=== PATIENT | female | born 1965 | race Caucasian/White ===

== ENCOUNTER 2016-12-09 21:40 | Inpatient (IN) | payer BC ==
--- NOTE | ~2016-12-09 | OP ---
Record Of Operation [facility] [address] [place]. [address] NAME: IRENA CHENEY : 61 STATUS : DIS IN PAT#: [id number] AGE: 50 ADM/REG DATE : 12/09/16 MR#: [id number] REPORT SERV DATE: 12/11/16 DICTATED BY: HUSSEIN ABBOTT DATE: 12/11/16 REPORT STATUS : Draft TRANSCRIBED BY: MODL DATE: 12/11/16 DATE OF PROCEDURE: 12/11/2016 INDICATION: Chest pain with multiple risk factors for coronary artery disease and repeated ER visits for same. RISK FACTORS: Include borderline diabetes, hypertension, and extensive family history. Also nicotine dependence. PROCEDURE: Left heart catheterization, coronary arteriography, left ventriculography. DESCRIPTION OF PROCEDURE: After informed consent was obtained, the patient was taken in a fasting state to the cardiac catheterization laboratory where she was prepped and draped in sterile fashion. IV moderate sedation was obtained using intravenous Versed and fentanyl. The right inguinal region was anesthetized using 1% Xylocaine. The right femoral artery was then entered using front wall approach and cannulated with a 6-[place] arterial sheath. A 6- [place] JL4 catheter was used to engage the left main coronary artery. A 6-[place] Ha right catheter was used to engage the right coronary artery. A 6-[place] angled pigtail catheter was used to cross the aortic valve at which time, a left ventriculogram was performed. The catheter was then withdrawn back across the aortic valve with no significant aortic transvalvular gradient. Results of the study are as follows: HEMODYNAMICS: Aorta 110/63 with a mean pressure 84 mmHg. Left ventricle 110/12 with an end- diastolic pressure of 17 mmHg. CORONARY ANATOMY: 1. Left main coronary artery: Left main coronary artery arises normally from the left coronary cusp. This vessel appears normal. 2. Left anterior descending artery: The left anterior descending artery arises normally from the left main coronary artery. This vessel has minimal luminal irregularities in proximal and mid segments of less than 20%. 3. Ramus intermedius: The ramus intermedius arises normally from the left main coronary artery. This vessel is normal. 4. Left circumflex artery: Left circumflex artery arises normally from the left main coronary artery. This is a small nondominant vessel which appears normal. 5. Right coronary artery: The right coronary artery arises normally from the right coronary cusp. This is a large dominant vessel which appears normal. LEFT VENTRICULOGRAM: Left ventriculogram was performed and showed normal symmetric left ventricular contractility and an ejection fraction of 55%. There is trace mitral insufficiency. COMPLICATIONS: There were no apparent complications. CONCLUSIONS: 1. Minimal single-vessel coronary artery disease described above. Record Of Operation [facility] [address] [place]. [address] NAME: IRENA CHENEY : 61 STATUS : DIS IN PAT#: [id number] AGE: 50 ADM/REG DATE : 12/09/16 MR#: [id number] REPORT SERV DATE: 12/11/16 DICTATED BY: HUSSEIN ABBOTT DATE: 12/11/16 REPORT STATUS : Draft TRANSCRIBED BY: ZULLY DATE: 12/11/16 2. Normal left ventricular systolic function with trace mitral insufficiency. 3. No apparent complications. 4. Plans made for continued medical management and risk factor/lifestyle modification. /ZULLY Hussein Abbott M.D., [facility] / [phone]
--- NOTE | ~2016-12-09 | HP ---
History And Physical [facility] [address] [place]. [address] NAME: YUSRA CHENEY : 61 STATUS : ADM IN [facility]#: [id number] AGE: 50 ADM/REG DATE : 12/09/16 MR#: [id number] REPORT SERV DATE: 12/10/16 DICTATED BY: HUSSEIN ABBOTT DATE: 12/10/16 REPORT STATUS : Draft TRANSCRIBED BY: MODWhit DATE: 12/10/16 DATE OF ADMISSION: 12/09/2016 HISTORY OF PRESENT ILLNESS: Ms. Yusra Cheney is a 50-year-old female with past medical history significant for diabetes type 2, hypertension, nicotine dependence, who presented to the [facility] Emergency Room last night complaining of substernal chest pain radiating to the neck with associated shortness of breath. The patient reports this occurred at rest. The patient reports that she had a similar episode a couple of years ago and had a negative nuclear stress test at that time. The patient reports that up until yesterday evening she felt well. REVIEW OF SYSTEMS: The patient denies any orthopnea, paroxysmal nocturnal dyspnea, syncope or presyncope. She reports chronic hoarseness secondary to vocal cord polyps. She denies any gastroesophageal reflux disease. She does complain of lower extremity neuropathy. She denies any neurologic or respiratory complaints except as per HPI. PAST MEDICAL HISTORY: Significant for diabetes mellitus type 2. She intermittently required insulin. The patient has had hypertension previously, but over recent months has been able to control this with lifestyle. She reports history of vocal cord polyps. She has not had these removed as the ENT required six months of smoking cessation prior to doing this procedure. She is status post BTL and C-sections. FAMILY HISTORY: Extensive for cerebrovascular disease. There is also an extensive history of premature coronary artery disease. SOCIAL HISTORY: The patient smokes at least one pack per day. ALLERGIES: THE PATIENT REPORTS ALLERGIES TO ERYTHROMYCIN AND MUCINEX. MEDICATIONS: Prior to admission see list. PHYSICAL EXAMINATION: VITAL SIGNS: Blood pressure 112/57, pulse 69, respiratory rate 16. The patient is afebrile. GENERAL: This is a well-developed, well-nourished, 50-year-old white female, alert and oriented x3 in no acute distress. NECK: Shows no jugular venous distention, hepatojugular reflux, carotid bruits. CARDIOVASCULAR: Normal rate with regular rhythm. No murmur, gallop, click, or rub. LUNGS: Clear to auscultation without wheezes, rales, or rhonchi. ABDOMEN: Soft, nontender, and nondistended. Positive bowel sounds. EXTREMITIES: Reveals trace lower extremity edema. Troponin at [facility] was negative at 0.01. EKG this morning is normal. History And Physical [address] [address] NAME: YUSRA CHENEY : 61 STATUS : ADM IN [facility]#: [id number] AGE: 50 ADM/REG DATE : 12/09/16 MR#: [id number] REPORT SERV DATE: 12/10/16 DICTATED BY: HUSSEIN ABBOTT DATE: 12/10/16 REPORT STATUS : Draft TRANSCRIBED BY: ZULLY DATE: 12/10/16 ASSESSMENT: 1. Acute coronary syndrome. 2. Hypertension - borderline. 3. Diabetes mellitus type 2. 4. Vocal cord polyps. 5. Peripheral neuropathy. PLAN: 1. See orders. 2. Proceed with left heart catheterization and possible PCI tomorrow in this patient with a story consistent with angina and multiple risk factors for coronary artery disease including hypertension, diabetes mellitus type 2, nicotine dependence, and extensive family history of coronary artery disease at a premature age. I have discussed the risks and benefits of the procedure with the patient including bleeding, infection, bruising, CVA, emergency surgery, and . The patient understands these risks and agrees to proceed. /ZULLY Hussein Abbott M.D., [facility] / [id number] CC: Hussein Abbott M.D., [facility] Oumar Parkinson
[2016-12-09] MEDS ORDERED: NEUR600 PO (22:31)
[2016-12-09] MEDS ORDERED: SEROQUEL1C PO (22:31)
[2016-12-10 00:10] LABS: ASCORBIC ACID (UR NOT ORDER) NEG (NEG); BILIRUBIN, URINE NEGATIVE (NEG); KETONE, URINE NEGATIVE (NEG); LEUKOCYTE ESTERASE(NOT OR MOD (NEG); WBC (NOT ORDERED) (RFLEX) 3 (0-5)
[2016-12-10 05:21] LABS: BASOPHILS 0.2 %; BASOPHILS ABSOLUTE 0.03 10/3/uL (0.0-0.16); EOSINOPHILS 2.3 %; EOSINOPHILS ABSOLUTE 0.31 10/3/uL (0.0-0.53); HEMATOCRIT 49.6 % (36.0-48.0); HEMOGLOBIN 15.8 g/dL (12.0-16.0); IMMATURE GRANULOCYTES 0.7 %; IMMATURE GRANULOCYTES ABSOLUTE 0.09 10/3/uL (0.0-0.11); LYMPHOCYTES 32.3 %; LYMPHOCYTES ABSOLUTE 4.32 10/3/uL (0.67-4.30); MEAN CORPUS HGB CONC 31.9 g/dL (32.0-36.0); MEAN CORPUSCULAR HEMOGLOB 28.8 pg (26.0-34.0); MEAN CORPUSCULAR VOLUME 90.3 fL (80-100); MEAN PLATELET VOLUME 10.4 fL (9.2-13.0); MONOCYTES 6.4 %; MONOCYTES ABSOLUTE 0.85 10/3/uL (0.21-1.20); NEUTROPHILS 58.1 %; NEUTROPHILS ABSOLUTE 7.76 10/3/uL (2.02-8.40); PLATELET COUNT 295 10/3/uL (150-400); RED CELL COUNT 5.49 10/6/uL (4.0-5.6); WHITE BLOOD CELLS 13.4 10/3/uL (4.5-10.5)
[2016-12-10 05:23] LABS: MANUAL DIFF NO %
[2016-12-10 05:28] LABS: PROTIME (NOT ORD) 13.1 SEC (12.0-14.5)
[2016-12-10 05:33] LABS: PARTIAL THROMBO TIME 37.6 SEC (22.5-37.2)
[2016-12-10 05:41] LABS: BUN (BLOOD UREA NITROGEN) 13 MG/DL (6-23); CALCIUM, SERUM 9.6 MG/DL (8.5-10.4); CHLORIDE, SERUM 104 MMOL/L (96-112); CO2 (CARBON DIOXIDE) 29 MMOL/L (24-34); CREATININE 0.49 MG/DL (0.55-1.02); GFR AFRICAN AMERICAN 130 ML/MIN (>=60); GFR NON AFRICAN AMERICAN 112 ML/MIN (>=60); GLUCOSE, SERUM 135 MG/DL (60-99); POTASSIUM, SERUM 4.3 MMOL/L (3.5-5.3); SGPT(ALT) 16 U/L (5-65); SODIUM, SERUM 140 MMOL/L (135-148); TROPONIN I <0.02 NG/ML (<0.05)
[2016-12-10 08:40] LABS: CHOL/HDL RATIO(NOT ORDER) 7.9 (0-5); CHOLESTEROL 220 MG/DL (< 200); HDL CHOLESTEROL 28 MG/DL (> 49); LDL CHOLESTEROL 143 MG/DL (< 130); NON-HDL CHOLESTEROL 192 MG/DL (< 160); TRIGLYCERIDE 248 MG/DL (< 150)
[2016-12-10 09:19] LABS: BASOPHILS 0.3 %; BASOPHILS ABSOLUTE 0.03 10/3/uL (0.0-0.16); EOSINOPHILS 2.3 %; EOSINOPHILS ABSOLUTE 0.26 10/3/uL (0.0-0.53); HEMATOCRIT 49.9 % (36.0-48.0); HEMOGLOBIN 15.8 g/dL (12.0-16.0); IMMATURE GRANULOCYTES 0.7 %; IMMATURE GRANULOCYTES ABSOLUTE 0.08 10/3/uL (0.0-0.11); LYMPHOCYTES 32.3 %; LYMPHOCYTES ABSOLUTE 3.65 10/3/uL (0.67-4.30); MEAN CORPUS HGB CONC 31.7 g/dL (32.0-36.0); MEAN CORPUSCULAR HEMOGLOB 28.6 pg (26.0-34.0); MEAN CORPUSCULAR VOLUME 90.4 fL (80-100); MEAN PLATELET VOLUME 10.3 fL (9.2-13.0); MONOCYTES 6.5 %; MONOCYTES ABSOLUTE 0.74 10/3/uL (0.21-1.20); NEUTROPHILS 57.9 %; NEUTROPHILS ABSOLUTE 6.55 10/3/uL (2.02-8.40); PLATELET COUNT 303 10/3/uL (150-400); RBC DISTRIBUTION WIDTH 13.9 % (12.0-16.0); RED CELL COUNT 5.52 10/6/uL (4.0-5.6); WHITE BLOOD CELLS 11.3 10/3/uL (4.5-10.5)
[2016-12-10 09:22] LABS: MANUAL DIFF NO %
[2016-12-10 09:42] LABS: CHOL/HDL RATIO(NOT ORDER) 7.9 (0-5); CHOLESTEROL 220 MG/DL (< 200); HDL CHOLESTEROL 28 MG/DL (> 49); LDL CHOLESTEROL 146 MG/DL (< 130); NON-HDL CHOLESTEROL 192 MG/DL (< 160); TRIGLYCERIDE 232 MG/DL (< 150); TROPONIN I <0.02 NG/ML (<0.05)
[2016-12-11 12:38] LABS: BASOPHILS 0.2 %; BASOPHILS ABSOLUTE 0.03 10/3/uL (0.0-0.16); EOSINOPHILS ABSOLUTE 0.26 10/3/uL (0.0-0.53); HEMATOCRIT 45.1 % (36.0-48.0); HEMOGLOBIN 14.9 g/dL (12.0-16.0); IMMATURE GRANULOCYTES 0.4 %; IMMATURE GRANULOCYTES ABSOLUTE 0.05 10/3/uL (0.0-0.11); LYMPHOCYTES 38.1 %; LYMPHOCYTES ABSOLUTE 4.86 10/3/uL (0.67-4.30); MEAN CORPUSCULAR HEMOGLOB 29.6 pg (26.0-34.0); MEAN CORPUSCULAR VOLUME 89.5 fL (80-100); MEAN PLATELET VOLUME 10.2 fL (9.2-13.0); MONOCYTES 7.9 %; MONOCYTES ABSOLUTE 1.01 10/3/uL (0.21-1.20); NEUTROPHILS 51.4 %; NEUTROPHILS ABSOLUTE 6.53 10/3/uL (2.02-8.40); PLATELET COUNT 267 10/3/uL (150-400); RBC DISTRIBUTION WIDTH 13.8 % (12.0-16.0); RED CELL COUNT 5.04 10/6/uL (4.0-5.6); WHITE BLOOD CELLS 12.7 10/3/uL (4.5-10.5)
[2016-12-11 12:40] LABS: MANUAL DIFF NO %
[2016-12-11 12:52] LABS: BUN (BLOOD UREA NITROGEN) 15 MG/DL (6-23); CHLORIDE, SERUM 104 MMOL/L (96-112); CO2 (CARBON DIOXIDE) 29 MMOL/L (24-34); CREATININE 0.49 MG/DL (0.55-1.02); GFR AFRICAN AMERICAN 130 ML/MIN (>=60); GFR NON AFRICAN AMERICAN 112 ML/MIN (>=60); GLUCOSE, SERUM 136 MG/DL (60-99); POTASSIUM, SERUM 4.4 MMOL/L (3.5-5.3); SODIUM, SERUM 135 MMOL/L (135-148)
[2016-12-11] MEDS ORDERED: LOP25 (18:05)
[2016-12-11] MEDS ORDERED: LOP25 PO (18:06)
[2016-12-11] MEDS ORDERED: PROTONIX PO (18:06)
[2016-12-11] MEDS ORDERED: ASAB PO (18:07)
== END 2016-12-11 21:14 | disposition home or self-care (01) | DRG 287 ==
LOC: 5NO 21:40
PROVIDERS: Internal Medicine Interventional Cardiology
PROC: 4A023N7 Measurement of Cardiac Sampling and Pressure, Left Heart, Percutaneous Approach (ICD-10-PCS; principal; 2016-12-11)
PROC: B2111ZZ Fluoroscopy of Multiple Coronary Arteries using Low Osmolar Contrast (ICD-10-PCS; 2016-12-11)
PROC: B2151ZZ Fluoroscopy of Left Heart using Low Osmolar Contrast (ICD-10-PCS; 2016-12-11)
DX: R07.89 Other chest pain (principal); G62.9 Polyneuropathy, unspecified; I10 Essential (primary) hypertension; E11.9 Type 2 diabetes mellitus without complications; J38.1 Polyp of vocal cord and larynx; F17.210 Nicotine dependence, cigarettes, uncomplicated
CPT/HCPCS: 80048; 80061; 81001; 82962; 83735; 84460; 84484; 84703; 85025; 85610; 85730; 87086; 93005; 93458; 99152; 99153; A9270-GY; C1769; J2250; J3010; Q9967